=== PATIENT | male | born 1945 | race Caucasian/White ===

== ENCOUNTER 2016-06-19 14:15 | Emergency (ER) | payer MEDICARE ==
[~2016-06-19 14:15] MED LIST: CLOM25CA PO; COUM3TAB PO; METO25CR PO; TRAM50 PO
[2016-06-19 14:19] VITALS: BP 69/48; PULSE 68; RESP 16; TEMP 97.7; O2SAT 100
[2016-06-19 14:35] VITALS: BP 103/60
--- NOTE | 2016-06-19 14:36 | PD ---
Physical Exam Time Seen by Provider: 14:26 Narrative 70 year old male with significant cardiac history to include EF< 20%, aortic valve replacement, Afib, pace maker placement- set at 70 bpm-, and now a flutter since last year. Pt has history of low blood pressure, but has been lower today with a HR that jumped to 120 yesterday and remained 70 bpm over night. This morning it has been jumping to 120bpm with any activity. Dr. Castellano is his replenisher and advised him to take an extra metoprolol (25mg) this morning but it didn't help. He contacted the office again and was told to take digoxin and then go to the ER if his heart rate didn't slow. Denies pain. Reports chest tightness and bilateral arm tingling/numbness when this happens. Pt lost his three weeks ago. He has chronic shortness of breath. No other symptoms to report at this time. Data Data Last Documented VS Vital Signs Date Time Temp Pulse Resp B/P Pulse Ox O2 Delivery O2 Flow Rate FiO2 06/19/16 14:19 97.7 68 16 69/48 100 MDM Medical Record Reviewed: Yes Supervised Visit with JUWAN: No Narrative Course 70 year old male presents to the ED for evaluation. Appears chronically ill, but without distress. . Is quite hypotensive initially in triage- recheck by triage nurse is 103/60. Pt reports history of hypotension. Will be place in next medical bed once it becomes available. Condition: Stable Eliana Conde Jun 19, 2016 14:36
[2016-06-19] MEDS ORDERED: SODIUM CHLORID 0.9% 500 ML INJ 500 ML IV ONE (14:45)
[2016-06-19 14:47] VITALS: BP 82/57; PULSE 80; RESP 18; O2SAT 97
[2016-06-19 14:49] VITALS: O2SAT 100
[2016-06-19 15:26] LABS: AUTOMATED NEUTROPHIL # 4.9 TH/MM3 (1.8-7.7); BASOPHIL % 0.7 % (0.0-2.0); EOSINOPHIL % 0.4 % (0.0-4.0); HEMATOCRIT 35.5 % (39.0-51.0); HEMO FLAGS DIFF FINAL; LYMPH % 19.3 % (9.0-44.0); LYMPHOCYTE # 1.3 TH/MM3 (1.0-4.8); MEAN CELL VOLUME 91.3 FL (80.0-100.0); MEAN CORPUSCULAR HEMOGLOBIN 31.1 PG (27.0-34.0); MONO % 8.8 % (0.0-8.0); NEUT % 70.8 % (16.0-70.0); PLATELET COUNT 172 TH/MM3 (150-450); RED BLOOD COUNT 3.88 MIL/MM3 (4.50-5.90); RED CELL DISTRIBUTION WIDTH 14.2 % (11.6-17.2)
[2016-06-19 15:44] LABS: BICARBONATE 25.8 MEQ/L (21.0-32.0); MAGNESIUM 2.4 MG/DL (1.5-2.5); POTASSIUM 4.7 MEQ/L (3.5-5.1)
[2016-06-19 15:45] LABS: APTT (PATIENT) 29.7 SEC (24.3-30.1); INTERNATIONAL NORMALIZED RATIO 1.4 RATIO; PROTHROMBIN TIME - PATIENT 15.2 SEC (9.8-11.6)
--- NOTE | 2016-06-19 15:49 | RADRPT ---
EXAM DATE/TIME: 06/19/2016 15:06 [facility] COMPARISON: No previous studies available for comparison. INDICATIONS : Short of breath. MEDICAL HISTORY : None. SURGICAL HISTORY : Pacemaker. aortic valve surgery. ENCOUNTER: Initial ACUITY: 1 day PAIN SCORE: 0/10 LOCATION: Bilateral chest FINDINGS: A single view of the chest demonstrates moderate to severe cardiomegaly postsurgical changes from jonnathan or CABG are noted. AICD device is noted in place. The lungs are well-expanded. There is a mild interstitial prominence. There is no evidence of consoli dating infiltrateor pleural effusions. CONCLUSION: COPD. Cardiomegaly with evidence of prior CABG. AICD Interstitial prominence which represent early interstitial edema. No evidence of consolidating airspace disease. Shoaib Askew MD on June 19, 2016 at 15:44 Board Certified Radiologist. This report was verified electronically.
[2016-06-19 15:58] LABS: DIGOXIN 1.2 NG/ML (0.8-2.0)
--- NOTE | 2016-06-19 16:04 | PD ---
HPI Chief Complaint: Cardiac Complaint Time Seen by Provider: 15:59 Travel History International Travel<30 days: No Contact w/Intl Traveler<30days: No Traveled to known affect area: No History of Present Illness HPI 70-year-old male that presents to the ED for evaluation of tachycardia. Per patient he has a chronic history of atrial flutter as well as heart problems and a pacemaker. Patient states that he currently follows with a doctor in the [facility] as well as Dr. Loya. Patient last had his pacemaker checked in January. Per patient she's had issues with his heart rate remained high as she 's had ablations in the past and he continues to have the tachycardia. Per patient the symptoms started yesterday. Per patient he himself can tell when the heart rate going up. Per patient since yesterday any extrinsic activity causes him to get tachycardia. Per patient he has no pain with it. No shortness of breath. Patient this morning woke up and felt the tachycardia will he was moving and he called Dr. Castellano who recommended that he take his digoxin dose and takes a metoprolol. Patient took this with no relief so he was told to come here to get evaluated. He denies any abdominal pain. No recent travel. No nausea or vomiting. On my exam his heart rate keeps going up and down. As high as 120. He denies any blurry vision or double vision. Per patient he has chronic hypotension. Per patient he is ejection fracture is less than 20%. PFSH Past Medical History Hx Anticoagulant Therapy: Yes (SAVAYSA) Heart Rhythm Problems: Yes (PAROXYSMAL A-FIB) Cardiovascular Problems: Yes (VALVE REPLACEMENT; LOW BP) Diminished Hearing: No Gastrointestinal Disorders: Yes (HX SMALL BOWEL OBSTRUCTION) Hypertension: Yes Psychiatric: No Past Surgical History Body Medical Devices: pacemaker Cardiac Surgery: Yes Valve Replacement: Yes (AORTIC VALVE IN ') Social History Alcohol Use: No Tobacco Use: No Substance Use: No Allergies-Medications (Allergen,Severity, Reaction): Coded Allergies: No Known Allergies (Verified , 06/19/16) Uncoded Allergies: LAUNDRY DETERGENTS (Allergy, Unknown, Itching, 01/10/15) . Reported Meds & Prescriptions Reported Meds & Active Scripts Active Reported Bumex (Bumetanide) 2 Mg Tab 2 Mg PO DAILY Valium (Diazepam) 2 Mg Tab 2 Mg PO HS PRN Savaysa (Edoxaban) 60 Mg Tab 60 Mg PO DAILY Digoxin 0.125 Mg Tab 0.125 Mg PO DAILY Toprol XL (Metoprolol Succinate) 25 Mg Tab 25 Mg PO DAILY Review of Systems Except as stated in HPI: all other systems reviewed are Neg Physical Exam Narrative GENERAL: SKIN: Warm and dry. HEAD: Atraumatic. Normocephalic. EYES: Pupils equal and round 4 mm reactive to light and accommodation. No scleral icterus. No injection or drainage. ENT: No nasal bleeding or discharge. Mucous membranes pink and moist. Tongue is midline. No uvula deviation. NECK: Trachea midline. No JVD. CARDIOVASCULAR: Tachycardic rate and rhythm. No murmurs, S3, S4. RESPIRATORY: No accessory muscle use. Clear to auscultation. Breath sounds equal bilaterally. GASTROINTESTINAL: Abdomen soft, non-tender, nondistended. Hepatic and splenic margins not palpable. MUSCULOSKELETAL: Extremities without clubbing, cyanosis, or edema. No obvious deformities. Full range of motion of the upper and lower extremities bilaterally. 2+ pulses bilaterally. NEUROLOGICAL: Awake and alert. No obvious cranial nerve deficits. Motor grossly within normal limits. Five out of 5 muscle strength in the arms and legs. Normal speech. PSYCHIATRIC: Appropriate mood and affect; insight and judgment normal. Data Data Last Documented VS Vital Signs Date Time Temp Pulse Resp B/P Pulse Ox O2 Delivery O2 Flow Rate FiO2 06/19/16 16:28 70 18 113/69 98 Room Air 06/19/16 14:19 97.7 Orders Electrocardiogram (06/19/16 14:41) Basic Metabolic Panel (Bmp) (06/19/16 14:41) B-Type Natriuretic Peptide (06/19/16 14:41) Ckmb (Isoenzyme) Profile (06/19/16 14:41) Complete Blood Count With Diff (06/19/16 14:41) Digoxin (06/19/16 14:41) Magnesium (Mg) (06/19/16 14:41) Prothrombin Time / Inr (Pt) (06/19/16 14:41) Act Partial Throm Time (Ptt) (06/19/16 14:41) Troponin I (06/19/16 14:41) Chest, Single Ap (06/19/16 14:41) Ecg Monitoring (06/19/16 14:41) Bilateral Bp Monitoring (06/19/16 14:41) Iv Access Insert/Monitor (06/19/16 14:41) Oximetry (06/19/16 14:41) Oxygen Administration (06/19/16 14:41) Sodium Chlorid 0.9% 500 Ml Inj (Ns 500 M (06/19/16 14:45) Electrocardiogram (06/19/16 15:45) Labs Laboratory Tests Test 06/19/16 14:59 White Blood Count 7.0 TH/MM3 Red Blood Count 3.88 MIL/MM3 Hemoglobin 12.1 GM/DL Hematocrit 35.5 % Mean Corpuscular Volume 91.3 FL Mean Corpuscular Hemoglobin 31.1 PG Mean Corpuscular Hemoglobin 34.0 % Concent Red Cell Distribution Width 14.2 % Platelet Count 172 TH/MM3 Mean Platelet Volume 8.2 FL Neutrophils (%) (Auto) 70.8 % Lymphocytes (%) (Auto) 19.3 % Monocytes (%) (Auto) 8.8 % Eosinophils (%) (Auto) 0.4 % Basophils (%) (Auto) 0.7 % Neutrophils # (Auto) 4.9 TH/MM3 Lymphocytes # (Auto) 1.3 TH/MM3 Monocytes # (Auto) 0.6 TH/MM3 Eosinophils # (Auto) 0.0 TH/MM3 Basophils # (Auto) 0.0 TH/MM3 CBC Comment DIFF FINAL Differential Comment Prothrombin Time 15.2 SEC Prothromb Time International 1.4 RATIO Ratio Activated Partial 29.7 SEC Thromboplast Time Sodium Level 136 MEQ/L Potassium Level 4.7 MEQ/L Chloride Level 102 MEQ/L Carbon Dioxide Level 25.8 MEQ/L Anion Gap 8 MEQ/L Blood Urea Nitrogen 25 MG/DL Creatinine 1.14 MG/DL Estimat Glomerular Filtration 63 ML/MIN Rate Random Glucose 105 MG/DL Calcium Level 9.3 MG/DL Magnesium Level 2.4 MG/DL Total Creatine Kinase 56 U/L Troponin I 0.10 NG/ML Digoxin Level 1.2 NG/ML [facility] Medical Decision Making Medical Screen Exam Complete: Yes Emergency Medical Condition: Yes Medical Record Reviewed: Yes Interpretation(s) CBC & BMP Diagram 06/19/16 14:59 troponin of 0.10 EKG showed junctional rhythm with tachycardia in the 120s. Last Impressions Chest X-Ray 06/19/16 1441 Signed Impressions: Service Date/Time: Sunday, June 19, 2016 15:06 - CONCLUSION: COPD. Cardiomegaly with evidence of prior CABG. AICD Interstitial prominence which represent early interstitial edema. No evidence of consolidating airspace disease. Shoaib Askew MD Differential Diagnosis Atrial flutter versus tachycardia versus atrial fibrillation versus V. tach versus ACS versus hypotension versus tachyarrhythmia Narrative Course 70-year-old male that presents to the ED for evaluation of tachycardia. Patient was properly examined and was found to have signs and symptoms consistent with appears to be tachycardia. Patient seems to becoming in and out of tachycardia even just sitting. Patient's have it has been as high as 120 my examination. Case was discussed with my attending who recommends lab works and pacemaker check. While waiting for the lab work my attending Dr Robbie nam the patient went into V. tach and he got defibrillated by his own pacemaker and now is back to normal. Now he is being paced. Labs and imaging did show some pulmonary edema. Otherwise unremarkable. My attending wants to speak with Dr. Castellano. My attending spoke with Dr. Castellano who recommended that as patient was already feeling back to normal and feels improved week should observe him for about 3 hours and monitor him. The patient feels fine he can go home and follow-up in his office tomorrow. If not patient will be admitted. Patient was told this by my attending who agrees with plan. Patient will be monitored until 530. Patient ambulated and felt better. Wants to go home. My attending spoke with him and he understands reasons to come back. F/u with Dr Castellano tomorrow. See ED if worst. Diagnosis Primary Impression: Tachyarrhythmia Additional Impression: Atrial flutter with rapid ventricular response Referrals: Autumn Castellano MD Patient Instructions: General Instructions Additional Instructions: Follow with Dr. Castellano. See ED for worsening symptoms. Continue taking medications as prescribed by your doctor. Med/Other Pt SpecificInfo: No Change to Meds Disposition: 01 DISCHARGE HOME Condition: Stable Danie Valenzuela Jun 19, 2016 16:04
[2016-06-19 16:28] VITALS: BP 113/69; PULSE 70; RESP 18; O2SAT 98
[2016-06-19] MEDS ORDERED: DIGO0.12 PO (17:03)
[2016-06-19] MEDS ORDERED: TOPR25TA PO (17:03)
[2016-06-19] MEDS ORDERED: BUME1TAB28 PO (17:03)
[2016-06-19] MEDS ORDERED: EDOX1TAB5 PO (17:03)
[2016-06-19] MEDS ORDERED: DIAZ2 PO (17:03)
[2016-06-19 17:54] VITALS: BP 107/66; PULSE 70; RESP 18; O2SAT 100
--- NOTE | 2016-06-19 17:56 | PD ---
Physical Exam Date Seen by Provider: Jun 19, 2016 Time Seen by Provider: 15:30 Narrative I, Dr. Van, have reviewed the advance practice practitioner's documentation and am in agreement, met with the patient face to face, made the diagnosis, and the medical decision making was done by me. *My assessment and Findings: Patient seen and evaluated with PA, please see PA note for further details. Patient with long history of valvular disease, cardiomyopathy, has a pacemaker defibrillator. Here for shortness of breath, palpitations, has a rapid heartbeat. EKG shows a wide complex tachycardia dysrhythmia at a rate of 120 bpm. His blood pressure is low but patient states that this is baseline for him. Initial lab work, chest x-ray, ordered for the patient. He is not in significant distress at rest. Symptoms worsen including dyspnea with exertion. Laboratory Tests Test 06/19/16 14:59 Red Blood Count 3.88 MIL/MM3 (4.50-5.90) Hemoglobin 12.1 GM/DL (13.0-17.0) Hematocrit 35.5 % (39.0-51.0) Neutrophils (%) (Auto) 70.8 % (16.0-70.0) Monocytes (%) (Auto) 8.8 % (0.0-8.0) Prothrombin Time 15.2 SEC (9.8-11.6) Blood Urea Nitrogen 25 MG/DL (7-18) Estimat Glomerular Filtration 63 ML/MIN (>89) Rate Troponin I 0.10 NG/ML (0.02-0.05) Pacemaker rep was called to evaluate pacemaker and it shows that the patient is in atrial flutter with a 2-1 ventricular rate in the 120s. At this point, with help of pacemaker rep, and with patient permission, an attempt was made to pace the atrium. During the attempt, patient went into V. tach and was defibrillated out of V. tach into a paced rhythm at a rate of 70 bpm. Patient felt better after the episode. At this point, the case was discussed with patient's oyster shipper, Dr. Castellano and he states that if the patient is feeling well, patient can be released in a few hours after observation in the ER. I have discussed the findings and his oyster shipper on its with the patient and he states that he is comfortable with the plan. At 5:45 PM, patient ambulated around the ER, states he feels well, and heart rate remained stable in the 70s. At this point, he states he feels comfortable enough to be released with follow-up to his oyster shipper. Return for any worsening in symptoms as needed. Patient states understanding. Data Data Last Documented VS Vital Signs Date Time Temp Pulse Resp B/P Pulse Ox O2 Delivery O2 Flow Rate FiO2 06/19/16 16:28 70 18 113/69 98 Room Air 06/19/16 14:19 97.7 Orders Electrocardiogram (06/19/16 14:41) Basic Metabolic Panel (Bmp) (06/19/16 14:41) B-Type Natriuretic Peptide (06/19/16 14:41) Ckmb (Isoenzyme) Profile (06/19/16 14:41) Complete Blood Count With Diff (06/19/16 14:41) Digoxin (06/19/16 14:41) Magnesium (Mg) (06/19/16 14:41) Prothrombin Time / Inr (Pt) (06/19/16 14:41) Act Partial Throm Time (Ptt) (06/19/16 14:41) Troponin I (06/19/16 14:41) Chest, Single Ap (06/19/16 14:41) Ecg Monitoring (06/19/16 14:41) Bilateral Bp Monitoring (06/19/16 14:41) Iv Access Insert/Monitor (06/19/16 14:41) Oximetry (06/19/16 14:41) Oxygen Administration (06/19/16 14:41) Sodium Chlorid 0.9% 500 Ml Inj (Ns 500 M (06/19/16 14:45) Electrocardiogram (06/19/16 15:45) Labs Laboratory Tests Test 06/19/16 14:59 White Blood Count 7.0 TH/MM3 Red Blood Count 3.88 MIL/MM3 Hemoglobin 12.1 GM/DL Hematocrit 35.5 % Mean Corpuscular Volume 91.3 FL Mean Corpuscular Hemoglobin 31.1 PG Mean Corpuscular Hemoglobin 34.0 % Concent Red Cell Distribution Width 14.2 % Platelet Count 172 TH/MM3 Mean Platelet Volume 8.2 FL Neutrophils (%) (Auto) 70.8 % Lymphocytes (%) (Auto) 19.3 % Monocytes (%) (Auto) 8.8 % Eosinophils (%) (Auto) 0.4 % Basophils (%) (Auto) 0.7 % Neutrophils # (Auto) 4.9 TH/MM3 Lymphocytes # (Auto) 1.3 TH/MM3 Monocytes # (Auto) 0.6 TH/MM3 Eosinophils # (Auto) 0.0 TH/MM3 Basophils # (Auto) 0.0 TH/MM3 CBC Comment DIFF FINAL Differential Comment Prothrombin Time 15.2 SEC Prothromb Time International 1.4 RATIO Ratio Activated Partial 29.7 SEC Thromboplast Time Sodium Level 136 MEQ/L Potassium Level 4.7 MEQ/L Chloride Level 102 MEQ/L Carbon Dioxide Level 25.8 MEQ/L Anion Gap 8 MEQ/L Blood Urea Nitrogen 25 MG/DL Creatinine 1.14 MG/DL Estimat Glomerular Filtration 63 ML/MIN Rate Random Glucose 105 MG/DL Calcium Level 9.3 MG/DL Magnesium Level 2.4 MG/DL Total Creatine Kinase 56 U/L Troponin I 0.10 NG/ML Digoxin Level 1.2 NG/ML [facility] Medical Record Reviewed: Yes Supervised Visit with JUWAN: Yes Diagnosis Primary Impression: Tachyarrhythmia Additional Impression: Atrial flutter with rapid ventricular response Referrals: Autumn Castellano MD Patient Instructions: General Instructions Additional Instruction: Follow with Dr. Castellano. See ED for worsening symptoms. Continue taking medications as prescribed by your doctor. Disposition: 01 DISCHARGE HOME Condition: Stable Lydia Van MD Jun 19, 2016 17:56
--- NOTE | 2016-06-19 23:12 | EKG ---
Date Performed: 06/19/2016 Time Performed: 17:09:37 PTAGE: 70 years EKG: ELECTRONIC ATRIAL PACEMAKER ELECTRONIC VENTRICULAR PACEMAKER ABNORMAL RHYTHM ECG PREVIOUS TRACING : 06/19/2016 15.45 Compared to prior tracing no significant change DOCTOR: Rogelio Woods Interpretating Date/Time 06/19/2016 23:11:59
--- NOTE | 2016-06-19 23:27 | EKG ---
Date Performed: 06/19/2016 Time Performed: 15:45:21 PTAGE: 70 years EKG: ELECTRONIC ATRIAL PACEMAKER ELECTRONIC VENTRICULAR PACEMAKER ABNORMAL RHYTHM ECG PREVIOUS TRACING : 06/19/2016 15.00 Compared to the previous tracing, previously probably aflut ter with left bundle branch block DOCTOR: Rogelio Woods Interpretating Date/Time 06/19/2016 23:25:44
--- NOTE | 2016-06-19 23:30 | EKG ---
Date Performed: 06/19/2016 Time Performed: 15:00:27 PTAGE: 70 years EKG: PROBABLE AFLUTTER WITH RAPID RESPONSE MARKED LEFT AXIS DEVIATION LEFT BUNDLE BRANCH BLOCK A BNORMAL ECG PREVIOUS TRACING : 03/17/2010 15.16 Compared to the previous tracing, previously afib with cont rolled ventricular response DOCTOR: Rogelio Woods Interpretating Date/Time 06/19/2016 23:29:13
== END 2016-06-19 18:12 | disposition home or self-care (01) ==
LOC: NEPC 14:15
DX: I48.92 Unspecified atrial flutter (principal); R06.02 Shortness of breath
CPT/HCPCS: 71010; 80048; 80162; 82550; 83735; 83880; 84484; 85025; 85610; 85730; 93005; 96360; 96361; 99285; J7040